=== PATIENT | male | born 1990 | race Caucasian/White ===

== ENCOUNTER 2018-09-05 13:07 | Emergency (ER) | payer MEDICAID, OTHER ==
[~2018-09-05] VITALS: Ht 170.2 cm; Wt 86.2 kg
[2018-09-05 13:07] VITALS: BP 145/79
--- NOTE | 2018-09-05 13:07 | NUR ---
Patient BIBA [facility] accompanied by [place] and [place], transferred to bed 5. RN evaluating patient at bedside.
--- NOTE | 2018-09-05 13:10 | NUR ---
PT BIB EMS FOR ALTERED LEVEL OF CONSCIOUSNESS. PER EMS PT WAS GOING DOOR TO DOOR, STATING THAT HE NEEDS HIS ENERGY REPLENISHED. UNKNOWN IF PATIENT DID DRUGS. PT STATING INCOHERENT SENTENCES ON TRIAGE. UNOBTAINABLE MEDICAL HISTORY UNOBTAINABLE ALLERGIES
[2018-09-05] MEDS ORDERED: diphenhydrAMINE 50 MG/ML VIAL IM ONE (13:15)
[2018-09-05] MEDS ORDERED: HALOPERIDOL IM 5 MG/ML VIAL IM ONE (13:15)
[2018-09-05] MEDS ORDERED: LORazepam 2 MG/ML VIAL IM ONE (13:15)
--- NOTE | 2018-09-05 13:21 | NUR ---
medicated as written ; pt demonstrating aggressive behaviour, sudden onset of aggressive movements, posturing making fist----hyperverbal, paranoia --stating no one will take his soul aware---hard restraints ordered until safe to reduce.
[2018-09-05] MEDS ORDERED: diphenhydrAMINE 50 MG/ML VIAL ONE (13:22)
[2018-09-05] MEDS ORDERED: HALOPERIDOL IM 5 MG/ML VIAL ONE (13:22)
[2018-09-05] MEDS ORDERED: LORazepam 2 MG/ML VIAL ONE (13:23)
--- NOTE | 2018-09-05 13:30 | NUR ---
ASSESSED RESTRAINTS AT THIS TIME. CMS INTACT, PATIENT STILL YELLING AT STAFF. PATIENT NEEDS MET.
--- NOTE | 2018-09-05 13:45 | NUR ---
Restrains assessed; good circulation and sensation to all extremities. VSS. Pt continues to be very restless. All needs met.
--- NOTE | 2018-09-05 13:46 | NUR ---
Dr. Salazar evaluating patient at bedside.
--- NOTE | 2018-09-05 14:00 | NUR ---
Note destini in EDM - 09/05/18 at 1947 by KRISTINA Assessed restrains at this time. CMS intact. Toileting needs offered. VSS. Pt reoriented as indicated. All needs met.
--- NOTE | 2018-09-05 14:00 | NUR ---
Restrains assessed: Good circulation to all extremities. All needs met.
--- NOTE | 2018-09-05 14:15 | NUR ---
Restrains assessed: skin intact. Pt sleeping at this time. Sitter at bedside. VSS
--- NOTE | 2018-09-05 14:30 | NUR ---
Assessed restrains: Skin intact. Circulation and sensation intact. VSS. All needs met.
--- NOTE | 2018-09-05 14:45 | NUR ---
Pt sleeping, responsive to verbal stimuli. Restrains assessed, +ROM, skin intact. Good circulation and sensation to all extremities. Offered toileting. Will continue to monitor closely.
[2018-09-05 14:59] LABS: BASOPHILS # (AUTO) 0.1 K/uL (0.00-0.22); BASOPHILS % (AUTO) 0.6 % (0.0-2.0); EOSINOPHILS # (AUTO) 0.2 K/uL (0-0.4); EOSINOPHILS % (AUTO) 1.3 % (0.0-4.0); HEMATOCRIT 39.9 % (36-52); HEMOGLOBIN 13.3 g/dL (12.0-18.0); LYMPHOCYTES # (AUTO) 2.2 K/uL (2.0-11.5); LYMPHOCYTES % (AUTO) 18.4 % (20.5-51.1); MEAN CORPUSCULAR HEMOGLOBIN 28 pg (27-31); MEAN CORPUSCULAR HGB CONC 33 g/dL (33-37); MEAN CORPUSCULAR VOLUME 84.9 fL (80-94); MONOCYTES % (AUTO) 8.2 % (1.7-9.3); NEUTROPHILS # (AUTO) 8.5 K/uL (1.8-7.7); NEUTROPHILS % (AUTO) 71.5 % (42.2-75.2); PLATELET COUNT (AUTO) 315 K/uL (140-450); RED CELL DISTRIBUTION WIDTH 13.2 % (11.6-13.7); WHITE BLOOD COUNT (AUTO) 11.8 K/uL (4.8-10.8)
--- NOTE | 2018-09-05 15:00 | NUR ---
Pt noted calm and cooperative. Pt appears capable of controlling behavior; restraints removed. Skin intact. VSS. All needs met. 1:1 sitter at bedside.
[2018-09-05 15:22] LABS: ALBUMIN 3.9 g/dL (3.4-5.0); ANION GAP 15.4 (8-16); ASPARTATE AMINOTRANSFERASE 38 U/L (15-37); CARBON DIOXIDE 24.5 mmol/L (21-32); CHLORIDE 103 mmol/L (98-107); CREATININE 0.9 mg/dL (0.7-1.3); GFR ARICAN-AMERICAN 128 mL/min (>90); GLUCOSE 95 mg/dL (74-106); SODIUM SERUM 140 mmol/L (136-145); TOTAL BILIRUBIN 0.8 mg/dL (0.0-1.0); UREA NITROGEN, BLOOD 17 mg/dL (7-18)
[2018-09-05 15:23] LABS: POTASSIUM 2.9 mmol/L (3.5-5.1)
[2018-09-05 15:24] LABS: SALICYLATE < 2.8 mg/dL (2.8-20.0)
[2018-09-05 15:25] LABS: ACETAMINOPHEN < 0.5 ug/ml (10-30)
[2018-09-05] MEDS ORDERED: POTASSIUM CHLORIDE 20% 40 MEQ/15 ML UDC PO ONE (16:30)
[2018-09-05] MEDS ORDERED: KCL 20 MEQ/WATER INJ PREMIX 100 ML IV ONE (16:30)
[2018-09-05] MEDS ORDERED: MAG SULF 2000 MG/WATER PREMIX 50 ML IV ONE (16:30)
[2018-09-05 18:05] LABS: APPEARANCE,URINE CLOUDY (CLEAR); BILIRUBIN,URINE 1+ (NEGATIVE); COLOR,URINE YELLOW (YELLOW); LEUKOCYTE ESTERASE ,URINE NEGATIVE (NEGATIVE); NITRITE, URINE NEGATIVE (NEGATIVE); UGLUCOSE NEGATIVE (NEGATIVE)
[2018-09-05 18:08] LABS: BLOOD, URINE NEGATIVE (NEGATIVE)
[2018-09-05 18:14] LABS: BARBITURATE, URINE NEG. ng/ml (NEG <=200); BENZODIAZEPINE, URINE NEG. ng/mL (NEG <=200); CANNABINOID, URINE POS. ng/mL (NEG <=50); COCAINE, URINE NEG. ng/mL (NEG <=300); OPIATE, URINE NEG. ng/mL (NEG <=2000); PHENCYCLIDINE SCREEN,URINE NEG. ng/mL (NEG <=25)
--- NOTE | 2018-09-05 19:11 | NUR ---
Telepsychiatry consultation ordered as requested by Dr. Salazar.
--- NOTE | 2018-09-05 19:15 | NUR ---
Report given to Lin Esparza . messifer of [facility] at this time.
--- NOTE | 2018-09-05 19:15 | NUR ---
ASSUMED CARE OF PT FROM RICHARD CURTIS
--- NOTE | 2018-09-05 20:03 | NUR ---
TELEPSYCH, DR. DOAN, CALLED AND SPOKE WITH RICHARD NEGRO
--- NOTE | 2018-09-05 20:08 | NUR ---
TELEPSYCH, DR. DOAN, SPOKE WITH PATIENT VIA REMOTE COMMUNICATION
--- NOTE | 2018-09-05 20:13 | NUR ---
TELEPSYCH, DR. DOAN, CALLED AND SPOKE WITH RICHARD NEGRO
--- NOTE | 2018-09-05 21:00 | NUR ---
PT SLEEPING, REMAINS ATTACHED TO CONTINOUS CAN SLIDER. 1:[address]
--- NOTE | 2018-09-05 23:44 | NUR ---
PT SLEEPING, REMAINS ATTACHED TO CONTINOUS PRIMARY SUBSTANCE ABUSE COUNSELOR. 1:[address]
--- NOTE | 2018-09-06 02:10 | NUR ---
PT SLEEPING, REMAINS ATTACHED TO CONTINOUS TERMINAL PRESS OPERATOR. 1:[address]
--- NOTE | 2018-09-06 03:17 | NUR ---
PT AWAKE, ANSWERING QUESTIONS APPROPRIATLEY. GIVEN WATER PER PT REQUEST. INFORMED PT ABOUT THE NEED TO SPEAK TO PSYCHATRIST VIA TELEPYSCH PT STATED "GIVE ME ANOTHER HOUR IM NOT READY TO TALK YET" PT RETURNED TO SLEEP.
--- NOTE | 2018-09-06 03:27 | NUR ---
TELEPSYCH INFORMED PATIENT IS READY TO HAVE CONVERSATION WITH TELEPSYCH DOCTOR
--- NOTE | 2018-09-06 04:49 | NUR ---
CALLED TELEPSYCH FOR FOLLOW UP. TOLD CURRENTLY HAVE HIGH VOLUME OF REQUESTS AND THAT WE ARE CURRENTLY IN THE QUEUE WITH NO ETA AVAILABLE.
--- NOTE | 2018-09-06 05:37 | NUR ---
Patient resting with eyes closed, waiting for Telepsych. Sitter at bedside. VSS.
--- NOTE | 2018-09-06 06:24 | NUR ---
TELEPSYCH, DR. TORRES, CALLED AND SPOKE WITH RICHARD MCGUIRE
--- NOTE | 2018-09-06 06:28 | NUR ---
TELEPSYCH, DR. TORRES, SPOKE WITH PATIENT VIA REMOTE COMMUNICATION
--- NOTE | 2018-09-06 06:30 | NUR ---
Patient awake, AOX3, name, place, situation. Patient appears drowsy and states "I'm just waking up I'm still sleeping." while speaking with tele psych. Pt cooperative and answering doctor's questions. Sitter at bedside. VSS.
--- NOTE | 2018-09-06 06:46 | NUR ---
TELEPSYCH, DR. TORRES, CALLED BACK AND SPOKE WITH RICHARD MCGUIRE
--- NOTE | 2018-09-06 07:24 | NUR ---
PT AWAKE AND READY TO SPEAK WITH TELEPSYCH
--- NOTE | 2018-09-06 07:25 | NUR ---
pt eating breakfast at this time, awake and answering questions appropriately.
--- NOTE | 2018-09-06 08:41 | NUR ---
SPOKE WITH DR. WESTBROOK, HE WILL BE CALLING THE PT VIA TELEPSYCH NOW
--- NOTE | 2018-09-06 08:58 | NUR ---
SPOKE WITH DR. WESTBROOK, PER HIS ASSESSMENT VIA TELEPSYCH HE DOES NOT BELIEVE THE PT IS SUICIDAL OR A DANGER TO HIMSELF AT THIS TIME. PER DR. WESTBROOK, HE RECOMMENDS DISCHARGE AT THIS TIME. HE WILL FAX OVER THE PAPERWORK NOW.
--- NOTE | 2018-09-06 09:40 | NUR ---
CALLED HOUSE [employer] FOR BUS PASS
--- NOTE | 2018-09-06 09:45 | NUR ---
Patient discharged with v/s stable. Written and verbal after care instructions given and explained. Patient verbalized understanding. Ambulatory with steady gait. All questions addressed prior to discharge. Advised to follow up with PMD. IV REMOVED, PROVIDED PT WITH SACK LUNCH AND PAPER CLOTHING, AND BUS PASS.
[2018-09-06 09:52] VITALS: BP 108/60
== END 2018-09-06 09:45 | disposition home or self-care (01) ==
LOC: MED 13:07
DX: F23 Brief psychotic disorder (principal); F15.90 Other stimulant use, unspecified, uncomplicated; E87.6 Hypokalemia; F17.210 Nicotine dependence, cigarettes, uncomplicated
CPT/HCPCS: 36415; 80053; 80305; 81003; 85025; 96365; 96366; 96368; 96372; 99285; G0480; G0482; J1200; J1630; J2060; J3475; J3480

== ENCOUNTER 2019-03-23 13:13 | Emergency (ER) | payer MEDICAID, OTHER ==
[~2019-03-23] VITALS: Ht 167.6 cm; Wt 89.4 kg
--- NOTE | 2019-03-23 13:24 | NUR ---
BIB [employer] [employer] FOR METH USE. PT SCREAMING "YOU HAVE TO GET AIR FROM THE SHOWER." PT IS EXCESSIVELT TALKATIVE AND ACTING INAPROPRIATE. PATIENT STATES PAIN OF 0/10 AT THIS TIME; DUE TO PT'S BEHAVIORS, NOT ABLE TO CHECK PT'S BP AT THIS TIME. PATIENT POSITIONED FOR COMFORT; HOB ELEVATED; BEDRAILS UP X2; BED DOWN. ER MD MADE AWARE OF PT STATUS. TWO POLICEMEN ARE AT BEDSIDE.
--- NOTE | 2019-03-23 13:46 | NUR ---
Patient discharged with v/s stable. Written and verbal after care instructions given and explained. Patient verbalized understanding. Police with in custody. All questions addressed prior to discharge.
== END 2019-03-23 13:46 ==
LOC: MED 13:13
DX: Z02.89 Encounter for other administrative examinations (principal)
CPT/HCPCS: 99283